=== PATIENT | female | born 1960 | race Caucasian/White ===

== ENCOUNTER 2016-11-25 12:16 | Emergency (ER) | payer SELFPAY ==
--- NOTE | 2016-11-25 13:46 | RAD ---
2 VIEWS ABDOMEN AND UPRIGHT VIEW OF CHEST: Date: 11/25/16 COMPARISON: None. HISTORY: Constipation and abdominal pain. FINDINGS: Supine and upright views of the abdomen and upright view of the chest shows a nonspecific, nonobstru cted bowel gas pattern. No free air or air fluid levels are seen on upright examination. Air is seen at the level of the rectum. The cardiomediastinal silhouette is normal in size. There is no evidence of consolidation, mass, or pleural effusion. IMPRESSION: No evidence of obstruction. POS: [facility]
== END 2016-11-25 13:23 | disposition home or self-care (01) ==
LOC: NAV ERS 12:16
DX: K59.00 Constipation, unspecified (principal); E03.9 Hypothyroidism, unspecified; Z79.899 Other long term (current) drug therapy
CPT/HCPCS: 74022

== ENCOUNTER 2023-05-19 11:51 | Emergency (ER) | payer SELFPAY ==
[2023-05-19] MEDS ORDERED: Benzonatate 100 MG CAP ONE (12:17)
[2023-05-19] MEDS ORDERED: Amoxicillin/Potassium Clav 875 MG TAB ONE (12:17)
== END 2023-05-19 12:30 | disposition home or self-care (01) ==
LOC: NAV ERS 11:51
DX: J01.90 Acute sinusitis, unspecified (principal)
CPT/HCPCS: 99283

== ENCOUNTER 2023-11-16 20:10 | Emergency (ER) | payer SELFPAY ==
[2023-11-16] MEDS ORDERED: Dicyclomine 20 MG TAB ONE (20:58)
[2023-11-16] MEDS ORDERED: Sodium Chloride 0.9% 1,000 ML ONE (21:03)
[2023-11-16 21:07] LABS: #Basophils 0.1 thou/uL (0.0-0.2); #Monocytes 0.3 thou/uL (0.11-0.59); #Neutrophils 7.8 thou/uL (1.40-6.50); %Basophils 0.5 % (0.0-1.0); %Eosinophils 0.3 % (0.0-10.0); %Lymphocytes 10.4 % (21.0-51.0); %Monocytes 3.6 % (0.0-10.0); %Neutrophils 85.1 % (42.0-75.0); Hemoglobin 12.8 g/dL (12.0-16.0); Mean Corpuscular HGB CONC 30.6 g/dL (32.0-36.0); Mean Corpuscular Hemoglobin 26.3 pg (27.0-31.0); Mean Corpuscular Volume 85.9 fl (78.0-98.0); Mean Platelet Volume 9.2 fL (7.4-10.4); Platelet Count 177 10x3/uL (130-400); RBC Distribution Width 13.2 % (11.5-14.5); Red Blood Cell (RBC) Count 4.89 mill/uL (4.20-5.40); White Blood Cell (WBC) Count 9.1 10x3/uL (4.8-10.8)
[2023-11-16 21:16] LABS: Bilirubin Negative (Negative); Blood, Urine Moderate (Negative); Clarity Clear (Clear); Glucose, Urine (Dipstick) Negative (Negative); Ketone, Urine Negative (Negative); Leukocyte Negative (Negative); Nitrite Negative (Negative); Protein, Urine (Dipstick) 30 mg/dL (Neg-Trace)
[2023-11-16 21:18] LABS: Specific Gravity, Urine 1.028 (1.002-1.036)
[2023-11-16 21:23] LABS: ALT (SGPT) 15 U/L (8-55); AST (SGOT) 23 U/L (5-34); Albumin 3.9 g/dL (3.4-4.8); Alkaline Phosphatase 80 U/L (40-110); Anion Gap 13 mmol/L (10-20); BUN (Urea Nitrogen) 12 mg/dL (9.8-20.1); Bilirubin, Total 0.8 mg/dL (0.2-1.2); Calc. Creatinine Clearance 0 mL/min (70-130); Calcium 9.4 mg/dL (7.8-10.44); Carbon Dioxide 27 mmol/L (23-31); Chloride 106 mmol/L (98-107); Estimated GFR 63; Glucose 109 mg/dL (80-115); Potassium 3.8 mmol/L (3.5-5.1); Protein, Total 6.9 g/dL (5.8-8.1); Sodium 142 mmol/L (136-145)
[2023-11-16 21:24] LABS: Acetaminophen Less than 10 mcg/mL (10.0-30.0); Alcohol Less than 10.0 mg/dL (Less than 10); Lipase 52 U/L (8-78); Salicylate Less than 8.0 mg/dL (15.0-30.0)
[2023-11-16 21:27] LABS: CAUTI Indications for Culture Pelvic or flank pain; Squamous Epithelial None Seen HPF (0-3); WBC/HPF None Seen HPF (0-3)
[2023-11-16 21:28] LABS: Amphetamine Not Detected (NotDetected); Bacteria/HPF None Seen HPF (None Seen); Barbiturates Screen Not Detected (NotDetected); Benzodiazepine Screen Not Detected (NotDetected); Cocaine Metabolite Screen Not Detected (NotDetected); Methadone Not Detected (NotDetected); Methamphetamine Not Detected (NotDetected); Opiate Screen Not Detected (NotDetected); Oxycodone Screen Not Detected (NotDetected); Phencyclidine (PCP) Not Detected (NotDetected); THC/Cannabinoid Screen Not Detected (NotDetected); Tricyclic Screen Not Detected (NotDetected); Urine Culture Reflex No No
[2023-11-16] MEDS ORDERED: Acetaminophen 500 MG TAB ONE ×2 (23:12→23:17)
== END 2023-11-16 23:26 | disposition home or self-care (01) ==
LOC: NAV ERS 20:10
DX: R10.9 Unspecified abdominal pain (principal); E03.9 Hypothyroidism, unspecified; Z79.899 Other long term (current) drug therapy
CPT/HCPCS: 74176; 80053; 80306; 80307; 81001; 83690; 84443; 85025; 93005; J7050